=== PATIENT | female | born 1935 | race Caucasian/White ===

== ENCOUNTER 2017-04-02 03:47 | Observation (INO) | payer MEDICARE, BC ==
[~2017-04-02] VITALS: Ht 154.9 cm; Wt 67.1 kg
[2017-04-02 04:32] LABS: HEMOGLOBIN 12.7 gm/dl (12.3-15.3); RED BLOOD COUNT 4.3 M/UL (4.00-5.10); WHITE BLOOD COUNT 12.5 K/UL (4.5-11.0)
[2017-04-02] MEDS ORDERED: LOSARTAN-HCTZ1 EAC1 PO (10:28)
[2017-04-02] MEDS ORDERED: METOPROLOL SUC200 MG PO (10:29)
[2017-04-02] MEDS ORDERED: ACTOS TAB 15MG15 MG PO (10:32)
[2017-04-02] MEDS ORDERED: PRAVASTATIN SOD40 MG PO (10:33)
[2017-04-02] MEDS ORDERED: COUMADIN2 MG PO (10:34)
[2017-04-02] MEDS ORDERED: ISOSORBIDE MONO30 MG PO (10:34)
[2017-04-02] MEDS ORDERED: SPIRONOLACTONE25 MG PO (10:35)
[2017-04-02] MEDS ORDERED: VITAMIN D350000 UNIT PO (10:36)
[2017-04-02] MEDS ORDERED: JANUVIA100 MG PO (10:39)
[2017-04-02] MEDS ORDERED: PROTONIX 40 MG40 M1 PO (10:39)
[2017-04-02] MEDS ORDERED: ASPIR 8181 MG PO (10:42)
[2017-04-02 11:39] LABS: BUN/CREATININE RATIO 21 (0-10)
[2017-04-02] MEDS ORDERED: NITROSTAT 0.40.4 MG SL (15:45)
[2017-04-03 05:01] LABS: HEMOGLOBIN 11.4 gm/dl (12.3-15.3); RED BLOOD COUNT 3.88 M/UL (4.00-5.10); WHITE BLOOD COUNT 9.9 K/UL (4.5-11.0)
[2017-04-03] MEDS ORDERED: COUMADIN1 MG PO (14:34)
[2017-04-03] MEDS ORDERED: LEVAQUIN750 MG PO (14:35)
== END 2017-04-03 16:10 | disposition home or self-care (01) ==
LOC: ER1 03:47 → ZEROF 06:00 → MED SURG 4 13:19
PROVIDERS: Emergency Medicine; Family Medicine; ADMIT Internal Medicine
DX: J20.9 Acute bronchitis, unspecified (principal); R07.9 Chest pain, unspecified; I48.91 Unspecified atrial fibrillation; E11.9 Type 2 diabetes mellitus without complications; I10 Essential (primary) hypertension; I25.10 Atherosclerotic heart disease of native coronary artery without angina pectoris; I27.2 Other secondary pulmonary hypertension; K21.9 Gastro-esophageal reflux disease without esophagitis; Z88.8 Allergy status to other drugs, medicaments and biological substances; Z79.01 Long term (current) use of anticoagulants; Z79.82 Long term (current) use of aspirin; Z79.84 Long term (current) use of oral hypoglycemic drugs; Z79.899 Other long term (current) drug therapy; Z95.0 Presence of cardiac pacemaker; Z95.1 Presence of aortocoronary bypass graft
CPT/HCPCS: ECHO; 36415; 71010; 80048; 80053; 82550; 82553; 82962; 83874; 83880; 84484; 85025; 85027; 85610; 87040; 93005; 93306; 94640; 99285; G0378; J1815; J1956

== ENCOUNTER → 2021-03-03 | Outpatient (CLI) | payer MEDICARE, BC ==
[~2021-03-03] MED LIST: ACTOS TAB 15MG15 MG PO; ASPIR 8181 MG PO; COUMADIN2 MG PO; ISOSORBIDE MONO30 MG PO; JANUVIA100 MG PO; LEVAQUIN750 MG PO; LEVOFLOXACIN250 MG PO; LOSARTAN-HCTZ1 EAC1 PO; METOPROLOL SUC200 MG PO; NITROSTAT 0.40.4 MG SL; NORVASC5 MG PO; PRAVASTATIN SOD40 MG PO; PROTONIX 40 MG40 M1 PO; SPIRONOLACTONE25 MG PO; TYLENOL EXTRA500 MG PO; VITAMIN D350000 UNIT PO; WARFARIN SODIUM2 MG PO
[2021-03-03 12:25] LABS: HEMOGLOBIN 12.6 gm/dl (12.3-15.3); RED BLOOD COUNT 4.2 M/UL (4.00-5.10); WHITE BLOOD COUNT 8.6 K/UL (4.5-11.0)
== END ==
LOC: LAB 11:15
PROVIDERS: Internal Medicine Cardiovascular Disease
DX: Z45.010 Encounter for checking and testing of cardiac pacemaker pulse generator [battery] (principal); I49.5 Sick sinus syndrome; I48.91 Unspecified atrial fibrillation; R91.8 Other nonspecific abnormal finding of lung field
CPT/HCPCS: 36415; 71046; 80048; 85025; 85610

== ENCOUNTER → 2021-03-05 | Outpatient (CLI) | payer MEDICARE, BC | LOC: CATH 06:48 | DX: Z45.010 Encounter for checking and testing of cardiac pacemaker pulse generator [battery] (principal); I25.10 Atherosclerotic heart disease of native coronary artery without angina pectoris; I11.0 Hypertensive heart disease with heart failure; I50.9 Heart failure, unspecified; I48.91 Unspecified atrial fibrillation; E11.9 Type 2 diabetes mellitus without complications; E78.5 Hyperlipidemia, unspecified; I49.5 Sick sinus syndrome; Z88.8 Allergy status to other drugs, medicaments and biological substances; Z79.82 Long term (current) use of aspirin; Z79.899 Other long term (current) drug therapy; Z95.1 Presence of aortocoronary bypass graft; Z82.49 Family history of ischemic heart disease and other diseases of the circulatory system; Z83.3 Family history of diabetes mellitus | CPT/HCPCS: 33212; 82962; 99152; 99153; C1786; J1200; J2250; J3010; J3370; J7050 ==

== ENCOUNTER → 2021-09-30 | Outpatient (CLI) | payer MEDICARE, BC | LOC: RT 11:32 | DX: I25.10 Atherosclerotic heart disease of native coronary artery without angina pectoris (principal) | CPT/HCPCS: 36415; 93005 ==

== ENCOUNTER → 2022-04-17 | Outpatient (CLI) | payer MEDICARE, BC | LOC: LAB 16:45 | DX: U07.1 COVID-19 (principal) | CPT/HCPCS: U0003 ==

== ENCOUNTER → 2022-04-21 | Outpatient (CLI) | payer MEDICARE, BC ==
[~2022-04-21] VITALS: Ht 154.9 cm; Wt 65.3 kg
== END ==
LOC: EROP 10:41
DX: U07.1 COVID-19 (principal); Z23 Encounter for immunization
CPT/HCPCS: M0222; Q0222

== ENCOUNTER → 2022-05-01 | Outpatient (CLI) | payer MEDICARE, BC ==
[~2022-05-01] VITALS: Ht 154.9 cm; Wt 63.0 kg
== END ==
LOC: EROP 18:25
DX: Z53.9 Procedure and treatment not carried out, unspecified reason (principal)
CPT/HCPCS: G0463

== ENCOUNTER → 2022-05-01 | Outpatient (CLI) | payer MEDICARE, BC | LOC: LAB 11:42 | DX: Z51.81 Encounter for therapeutic drug level monitoring (principal); Z79.01 Long term (current) use of anticoagulants | CPT/HCPCS: 36415; 85610; G0463 ==

== ENCOUNTER → 2022-06-25 | Outpatient (CLI) | payer MEDICARE, BC | LOC: MAMO 04-13 10:00 | DX: Z12.31 Encounter for screening mammogram for malignant neoplasm of breast (principal) | CPT/HCPCS: 77063; 77067 ==